=== PATIENT | female | born 1960 | race Caucasian/White ===

== ENCOUNTER → 2017-07-29 | Outpatient (CLI) | payer MEDICARE ==
[~2017-07-29] MED LIST: CARBOPLATIN IV NR; DEXAMETHASONE SOD PHOSPHATE 10 MG/ML 1 ML VIAL IV NR; ETOPOSIDE 180 MG in SODIUM CHLORIDE 0.9% 500 ML IV NR; FAMOTIDINE 20 MG/2 ML VIAL IV NR; ONDANSETRON 16 MG in SODIUM CHLORIDE 0.9% 50 ML IVPB NR; SODIUM CHLORIDE 0.9% 500 ML in EMPTY BAG 1 BAG IV PRN; SODIUM CHLORIDE 0.9% IV NR
--- NOTE | 2017-07-29 12:43 | CT ---
EXAMINATION TYPE: CT ChestAbdPelvis w con DATE OF EXAM: 07/29/2017 INDICATION: Rectal cancer COMPARISON: NONE CT DLP: 2199 mGycm CONTRAST: Performed with Oral Contrast and with IV Contrast, patient injected with 100 ml mL of Omnipaque 300. TECHNIQUE: Axial images at 5 mm thick sections. Reconstructed images in the coronal plane. Delayed images through the kidneys. FINDINGS: CT CHEST: Thyroid is heterogenous. The right lobe is enlarged and may contain some calcifications. Additional w orkup of the thyroid with ultrasound is recommended. There is a subtle 0.4 cm groundglass opacity in the anterior right middle lobe. Series 4 image 25. No enlarged mediastinal or hilar adenopathy is evident. The ascending aorta diameter at the level of the main pulmonary artery is 3.1 cm. The main pulmonary artery diameter at the bifurcation is 2.0 cm. Coronary artery calcification is present. CT ABDOMEN: There is beam hardening artifact from thoracic fixation pedicle screws and rods. This cau ses some limitation. Liver: Normal Spleen: Normal Pancreas: Normal Adrenal glands: The adrenal glands are normal. Gallbladder: Normal Kidneys: No masses are evident. No hydronephrosis is present. No cysts are present. Delayed images were obtained through the kidneys, which remain unremarkable. Aorta: Vascular calcification is within the aorta. Inferior vena cava: Normal. CT PELVIS: Loops of bowel within the abdomen and pelvis are normal. There are loops of bowel which are incom pletely distended or lack oral contrast limiting their evaluation. Fecal debris is within the colon. There is thickening of the perirectal space. No perirectal adenopathy is evident. Suspicious pelvic a denopathy is not evident. Appendix: Normal as visualized. Urinary bladder: Normal. Genitourinary structures: There is a 3.8 cm cyst on the right ovary. The uterus is in the left hemipe lvis. Left adnexal region is normal. Osseous structures: Fixation rods and screws are present within the spine. Calcified Granuloma is in the posterior subcutaneous tissues left gluteal region. Sacral screws are present. Scoliosis is noted . IMPRESSIONS: 1. Diffuse nonspecific thickening within the rectal region can be related to the patient's cancer. Co rrelate with the surgical history. 2. Abnormal heterogenous thyroid. Thyroid ultrasound with attention to the right lobe thyroid is rosalina mmended for additional workup. 3. 3.8 cm right ovarian cyst. Follow-up pelvic ultrasound is recommended.
== END | disposition home or self-care (01) ==
LOC: RADCTMAIN 07:32
PROVIDERS: ATTEND Internal Medicine Hematology & Oncology
DX: N83.201 Unspecified ovarian cyst, right side (principal); C20 Malignant neoplasm of rectum; Z88.5 Allergy status to narcotic agent; Z88.6 Allergy status to analgesic agent
CPT/HCPCS: 71260; 74177; Q9967

== ENCOUNTER → 2017-08-06 | Outpatient (CLI) | payer MEDICARE ==
--- NOTE | 2017-08-06 13:37 | CT ---
EXAMINATION TYPE: CT brain wo/w con DATE OF EXAM: 08/06/2017 COMPARISON: NONE HISTORY: Patient complains of dizziness and headache post fall. Patient has history of rectal CA. CT DLP: 2279 mGycm, Automated exposure control for dose reduction was used. CONTRAST: Patient injected with 100 mL of Omnipaque 300. CT of the brain is performed utilizing 3 mm thick sections through the posterior fossa and 3 mm thick sections through the remaining calvarium. Study is performed within 24 hours of arrival to the hospital. No abnormal hyperdensity is present to suggest an acute intracranial hemorrhage. No mass lesion is evident. No acute infarcts are evident. Ventricles and sulci are appropriate for the patient age. No abnormal enhancement is evident. Paranasal sinuses and mastoid air cells within the [id number] are clear. IMPRESSIONS: 1. Normal pre and postcontrast CT brain CT cervical spine. COMPARISON: None CT of the cervical spine is performed in the axial plane at 2 mm thick sections. Reconstructed image s in the coronal, and sagittal plane are reviewed on the computer. No acute fractures are evident. Vertebral body alignment is normal. Disc heights are preserved. Vertebral body heights are preserved. No spinal canal stenosis is evident. No neural foraminal stenosis is evident. IMPRESSIONS: 1. Normal CT cervical spine.
== END | disposition home or self-care (01) ==
LOC: RADCTMAIN 11:36
PROVIDERS: ATTEND Internal Medicine Hematology & Oncology
DX: C20 Malignant neoplasm of rectum (principal); R51 Headache
CPT/HCPCS: 70470; Q9967

== ENCOUNTER 2017-08-20 05:48 | Day surgery (SDC) | payer MEDICARE ==
[2017-08-19 15:30] VITALS: BMI 31.9
[~2017-08-20 05:48] MED LIST changes: -CARBOPLATIN IV NR; -DEXAMETHASONE SOD PHOSPHATE 10 MG/ML 1 ML VIAL IV NR; -ETOPOSIDE 180 MG in SODIUM CHLORIDE 0.9% 500 ML IV NR; -FAMOTIDINE 20 MG/2 ML VIAL IV NR; -ONDANSETRON 16 MG in SODIUM CHLORIDE 0.9% 50 ML IVPB NR; +Pre Op ABX Message 1 EACH MISC MISCELLANE ONE; -SODIUM CHLORIDE 0.9% 500 ML in EMPTY BAG 1 BAG IV PRN; -SODIUM CHLORIDE 0.9% IV NR
[2017-08-20] MEDS ORDERED: DEXAMETHASONE SOD PHOSPHATE 10 MG/ML 1 ML VIAL IV ONE (06:16)
[2017-08-20] MEDS ORDERED: HYDROmorphone 0.5 MG/0.5 ML SYRINGE IVP PRN (06:16)
[2017-08-20] MEDS ORDERED: ONDANSETRON 4 MG/2 ML VIAL IVP ONE (06:16)
[2017-08-20] MEDS ORDERED: LACTATED RINGERS 1,000 ML IV SCH (06:16)
[2017-08-20] MEDS ORDERED: LIDOCAINE 1% 20 ML VIAL (10MG/ML) FOR IV START INTRADERMA ONE (06:48)
[2017-08-20 07:02] LABS: Glucose,Whole Blood 105 mg/dL (75-99)
[2017-08-20] MEDS ORDERED: BUPIVACAINE (PF) 0.25% 30 ML VIAL SQ ONE ×2 (07:31)
[2017-08-20] MEDS: HEPARIN SODIUM,PORCINE 100 UNIT/ML 5 ML VIAL IV ONE ×2 (07:32→07:46)
[2017-08-20] MEDS ORDERED: HEPARIN SODIUM,PORCINE 5,000 UNIT/ML 1 ML VIAL SQ ONE (07:47)
--- NOTE | 2017-08-20 07:55 | P.GSHP ---
History of Present Illness H&P Date: 08/20/17 Chief Complaint: Rectal cancer Patient being treated for colorectal cancer with chemotherapy. Patient has had 1 cycle of chemotherapy. She has poor IV access. She is here today for Port-A- Cath placement for administration of chemotherapy. Past Medical History Past Medical History: Cancer, Chest Pain / Angina, CVA/TIA, Diabetes Mellitus, Hyperlipidemia, Hypertension, Osteoarthritis (OA) Additional Past Medical History / Comment(s): migraines, MRI showed CVA with 3 lesions on brain, irregular heart beat, hx rectal bleeding, hemorrhoids, scoliosis, deteriorating disks, cervical and colon(currently getting radiation) cancer, detached retina rt eye History of Any Multi-Drug Resistant Organisms: None Reported Past Surgical History: Back Surgery, Hysterectomy Additional Past Surgical History / Comment(s): cancer removed from cervix, laparoscopy for scar tissue, l Past Anesthesia/Blood Transfusion Reactions: No Reported Reaction Smoking Status: Current every day smoker - Past Family History Mother Family Medical History: Cancer Father Family Medical History: Deep Vein Thrombosis (DVT) Medications and Allergies Home Medications Medication Instructions Recorded Confirmed Type Atorvastatin Calcium [Lipitor] 20 mg PO DAILY 07/02/17 08/19/17 History Doxepin Liquid 0.6 ml PO HS 07/02/17 08/20/17 History Fluticasone Nasal [place] [Flonase 2 spr EA NOSTRIL DAILY 07/02/17 08/20/17 History Nasal [place]] Gabapentin [Neurontin] 300 mg PO TID 07/02/17 08/20/17 History HYDROcodone/APAP 10-325MG [[place] 1 tab PO Q3HR PRN 07/02/17 08/19/17 History 10-325] Ibuprofen [Motrin] 800 mg PO Q8HR 07/02/17 08/19/17 History Lisinopril [Zestril] 10 mg PO DAILY 07/02/17 08/20/17 History Loratadine [Claritin] 10 mg PO DAILY 07/02/17 08/20/17 History Ranitidine HCl [Zantac] 150 mg PO DAILY 07/02/17 08/19/17 History metFORMIN HCL [Glucophage] 500 mg PO DAILY 07/02/17 08/19/17 History Varenicline [Chantix] 1 mg PO BID 08/04/17 08/20/17 History Ondansetron HCl [Zofran] 4 mg PO Q4-6H PRN 08/19/17 08/20/17 History hydrOXYzine PAMOATE [Vistaril] 25 mg PO Q4HR PRN 08/19/17 08/20/17 History Allergies Allergy/AdvReac Type Severity Reaction Status Date / Time aspirin Allergy Abdominal Verified 08/19/17 15:21 Pain oxycodone [From OxyContin] Allergy Hallucinati Verified 08/19/17 15:21 ons Surgical - Exam Vital Signs Temp Pulse Resp BP Pulse Ox 98.0 F 84 18 135/86 96 08/20/17 06:19 08/20/17 06:19 08/20/17 06:19 08/20/17 06:19 08/20/17 06:19 Physical exam: General: Well-developed, well-nourished HEENT: Normocephalic, sclerae nonicteric Abdomen: Nontender, nondistended Extremities: No edema Neuro: Alert and oriented Results - Labs Abnormal Lab Results - Last 24 Hours (Table) 08/20/17 Range/Units 06:43 POC Glucose (mg/dL) 105 H (75-99) mg/dL Assessment and Plan (1) Rectal cancer Narrative/Plan: Will proceed with Port-A-Cath placement at this time. Risks of bleeding, infection, pneumothorax, DVT, catheter malfunction were discussed. She understands and wishes to proceed. Current Visit: Yes Status: Acute Code(s): C20 - MALIGNANT NEOPLASM OF RECTUM SNOMED Code(s): 349815638
[2017-08-20] MEDS ORDERED: MIDAZOLAM 2 MG/2 ML VIAL ONE (08:19)
[2017-08-20] MEDS ORDERED: SUCCINYLCHOLINE CHLORIDE 100 MG/5 ML SYR IV ONE (08:19)
[2017-08-20] MEDS ORDERED: PROPOFOL 10 MG/ML 20 ML VIAL IV ONE (08:19)
[2017-08-20] MEDS ORDERED: fentaNYL (PF) 50 MCG/ML 2 ML AMP ONE (08:19)
[2017-08-20] MEDS ORDERED: LIDOCAINE 1% INJ 10MG/ML (20 ML MDV) ONE (08:19)
[2017-08-20] MEDS ORDERED: ePHEDrine SULFATE/0.9% NACL/PF 50 MG/5 ML SYRINGE IV ONE (08:19)
[2017-08-20] MEDS ORDERED: SODIUM CHLORIDE 0.9% 50 ML with ceFAZolin 2,000 MG IV ONE ×2 (08:23)
[2017-08-20] MEDS ORDERED: LACTATED RINGERS 1,000 ML IV ONE (09:03)
[2017-08-20] MEDS ORDERED: HYDROcodone/APAP 5-325MG 1 EACH TAB PO PRN (09:21)
[2017-08-20] MEDS ORDERED: NALOXONE 0.4 MG/ML 1 ML VIAL IV PRN (09:21)
--- NOTE | 2017-08-20 09:23 | P.OP ---
Date of Procedure: 08/20/17 Procedure(s) Performed: PREOPERATIVE DIAGNOSIS: Rectal cancer POSTOPERATIVE DIAGNOSIS: Same PROCEDURE: Port-A-Cath placement SURGEON: Rachid EBL: Minimal ANESTHESIA: Sedation COMPLICATIONS: None OPERATIVE PROCEDURE: Patient was brought and placed on the operative table in the supine position. The patient was sedated per anesthesia that time. The chest and neck were prepped and draped in usual sterile fashion. The ultrasound probe was used to identify the location of the right internal jugular vein. The skin was localized with lidocaine. The Seldinger needle was advanced into the IJ under ultrasound guidance. The wire was advanced through the needle under fluoroscopic guidance into the superior vena cava. A port pocket was created in the right infraclavicular location. The catheter was tunneled from the wire entrance site to the port pocket. The port was then connected to the catheter. The dilator introducer was threaded over the guidewire. The guidewire and dilator were then removed. The catheter was advanced through the introducer and introducer was then removed. The tip was seen to be in the right atrial junction. Port was flushed with both saline and a Hep-Lock solution. There was good flow both in and out of the port. The port was sutured in underlying tissues using 3-0 silk sutures. The subcutaneous tissues were reapproximated using 3-0 Vicryl sutures and the skin at both locations using 4-0 Monocryl sutures. Steri-Strips and sterile dressings then applied. DISPOSITION: Stable to recovery room
[2017-08-20 09:25] VITALS: TEMP 97.6
[2017-08-20 09:28] LABS: Glucose,Whole Blood 151 mg/dL (75-99)
--- NOTE | 2017-08-20 09:32 | XR ---
EXAMINATION TYPE: XR chest 1V confirm line [facility] DATE OF EXAM: 08/20/2017 COMPARISON: CT chest abdomen and pelvis July 29, 2017 HISTORY: Port-A-Cath insertion TECHNIQUE: Single AP portable frontal upright view of the chest is obtained. FINDINGS: There is new right internal jugular Mediport catheter with tip in SVC. There is no focal ai r space opacity, pleural effusion, or pneumothorax seen. Tracheal deviation to the left from heteroge neous right thyroid nodule or goiter is redemonstrated. The cardiac silhouette size is within normal limits. The osseous structures are demineralized. There is degenerative change bilateral glenohume ral joints. There is long segment surgery in the thoracic spine and partial visualization of long seg ment surgery in the lumbar spine. IMPRESSION: New right internal jugular Mediport catheter with tip in SVC. No sizable pneumothorax af ter catheter placement.
[2017-08-20 09:47] VITALS: RESP 18
--- NOTE | 2017-08-20 10:05 | FL ---
EXAMINATION TYPE: FL guided central line placement DATE OF EXAM: 08/20/2017 CLINICAL HISTORY: Port-A-Cath insertion. Newly diagnosed rectal cancer TECHNIQUE: Fluoroscopy. COMPARISON: None. FINDINGS: Fluoroscopic guidance was provided during Port-A-Cath insertion procedure performed by Dr. Rashid. A total of 39 seconds of fluoroscopic time was utilized during the procedure and one spot in traoperative image is acquired. Single image acquired shows catheter tip near cavoatrial junction wit h adjacent extensive surgical change to the visualized thoracic spine. IMPRESSION: As Above.
[2017-08-20 10:09] VITALS: BP 121/72; PULSE 88
== END 2017-08-20 10:55 | disposition home or self-care (01) ==
LOC: OR 05:48
PROVIDERS: ATTEND Surgery
DX: C19 Malignant neoplasm of rectosigmoid junction (principal); Z45.2 Encounter for adjustment and management of vascular access device; E11.9 Type 2 diabetes mellitus without complications; I10 Essential (primary) hypertension; F17.200 Nicotine dependence, unspecified, uncomplicated; K21.9 Gastro-esophageal reflux disease without esophagitis; M41.9 Scoliosis, unspecified; E78.5 Hyperlipidemia, unspecified; M19.90 Unspecified osteoarthritis, unspecified site; Z86.73 Personal history of transient ischemic attack (TIA), and cerebral infarction without residual deficits; Z79.84 Long term (current) use of oral hypoglycemic drugs; Z79.1 Long term (current) use of non-steroidal anti-inflammatories (NSAID); Z79.899 Other long term (current) drug therapy; Z92.3 Personal history of irradiation; Z85.41 Personal history of malignant neoplasm of cervix uteri; Z90.710 Acquired absence of both cervix and uterus; Z79.51 Long term (current) use of inhaled steroids; Z88.6 Allergy status to analgesic agent; Z88.5 Allergy status to narcotic agent
CPT/HCPCS: 77001; 36561; C1788; J2250; J1644; J1642; J1100; J2405; J2001; J3010; J0690; J0330; J2704

== ENCOUNTER → 2017-10-02 | Outpatient (CLI) | payer MEDICARE ==
[2017-10-02 13:54] LABS: Blood Urea Nitrogen 13 mg/dL (7-17)
--- NOTE | 2017-10-02 23:02 | CT ---
EXAMINATION TYPE: CT abdomen pelvis w con DATE OF EXAM: 10/02/2017 COMPARISON: 07/29/2017 HISTORY: 57-year-old female Rectal CA, observation for mets. TECHNIQUE: Contiguous axial scanning of the abdomen and pelvis following administration of 100 ml Omn ipaque 300 IV contrast. Delayed images through the kidneys and coronal/sagittal reconstructions perf ormed. CT DLP: 1659 mGycm Automated exposure control for dose reduction was used. FINDINGS: Heart is normal size without pericardial effusion. Lung bases clear without pleural effusion. There is a new 1.1 cm hypodense lesion posterior right liver lobe which is suspicious. Subtle 5 mm hy podense lesion peripheral right liver lobe axial image 29 that clearly seen previously. A 7 mm hypode nse lesion along the right side of the gallbladder fossa was present previously. Portal venous system is patent. Stable mild prominence to the bile duct with normal distal tapering. Gallbladder, adrenal glands, right kidney, spleen, pancreas show no gross abnormality. 6 mm nonobstructive calculus lower pole left kidney. A gastric fundal diverticulum is again visualized.. Moderate atherosclerotic calcifications infrarenal abdominal aorta and iliac arteries. No dilated small bowel, free fluid, or free air. No mesenteric or retroperitoneal lymphadenopathy remi ntified. Normal appendix. Oral contrast progressed to the transverse colon. Mild diverticulosis of the junction of the descendi ng and sigmoid colon. Bladder is urine distended. Redemonstrated some wall thickening of the distal rectum though not as pr onounced as compared to prior exam. Just adjacent, there are small foci of air in the vaginal canal a nd more air collecting within the fornices of the vagina. Uterus and ovaries are visualized. A 3.8 cm cystic lesion of the right ovary can be further evaluated with pelvic ultrasound. No abnormal fluid collection in the pelvis or pelvic lymphadenopathy seen. Bones: Extensive thoracolumbosacral and pelvic fusion hardware is present along with underlying levoc onvex scoliosis of the lumbar spine. No new osseous destructive process seen. IMPRESSION: 1. CONTINUED DISTORTED APPEARANCE TO THE DISTAL RECTUM THOUGH WITH THE OVERALL SOFT TISSUE THICKENING NOT PRONOUNCED 07/29/2017. FINDINGS MAY REFLECT SOME TREATMENT RESPONSE. 2. POSSIBLE RECTOVAGINAL FISTULA THERE ARE TINY FOCI OF AIR IN THE VAGINAL CANAL AND A GREATER ANDRE UNT OF AIR COLLECTING IN THE FORNICES. 3. TWO NEW HYPODENSE LESIONS IN THE RIGHT LIVER LOBE MEASURING 1.1 CM AND 0.5 CM. FOLLOW-UP RECOMMEND ED NEW HEPATIC METASTASES ARE NOT EXCLUDED. 4. OTHERWISE, NO OTHER EVIDENCE FOR METASTATIC DISEASE. 5. STABLE 3.8 CM CYSTIC LESION OF THE RIGHT OVARY. THIS IS ABNORMAL IN A POSTMENOPAUSAL FEMALE AND CA N BE FURTHER EVALUATED WITH PELVIC ULTRASOUND TO ASSESS FOR ANY INTERNAL COMPLEXITY. SUBSEQUENT RECOM MENDATIONS CAN BE MADE AT THAT TIME. 6. NONOBSTRUCTIVE 6 MM LEFT RENAL CALCULUS.
== END | disposition home or self-care (01) ==
LOC: RADPROMAIN 13:02
PROVIDERS: ATTEND Internal Medicine Hematology & Oncology
DX: C20 Malignant neoplasm of rectum (principal); N20.0 Calculus of kidney; K76.9 Liver disease, unspecified; N83.201 Unspecified ovarian cyst, right side
CPT/HCPCS: 82565; 84520; 74177; 36415; Q9967; J1642

== ENCOUNTER 2018-01-12 07:43 | Day surgery (SDC) | payer MEDICARE, OTHER ==
[2018-01-06 12:02] VITALS: BMI 28.8
[~2018-01-12 07:43] MED LIST changes: +LACTATED RINGERS 1,000 ML IV SCH; +LIDOCAINE 1% 20 ML VIAL (10MG/ML) FOR IV START INTRADERMA PRN; -Pre Op ABX Message 1 EACH MISC MISCELLANE ONE
[2018-01-12 07:58] VITALS: TEMP 97.5
[2018-01-12 08:36] LABS: Glucose,Whole Blood 95 mg/dL (75-99)
[2018-01-12] MEDS ORDERED: PROPOFOL 10 MG/ML 20 ML VIAL IV ONE (09:08)
[2018-01-12] MEDS ORDERED: MIDAZOLAM 2 MG/2 ML VIAL ONE (09:08)
[2018-01-12 09:35] VITALS: RESP 18
[2018-01-12] MEDS ORDERED: HYDROcodone/APAP 10-325MG 1 EACH TAB PO ONE (09:48)
[2018-01-12 10:14] VITALS: BP 111/73; PULSE 79
--- NOTE | 2018-01-12 12:44 | P.PCN ---
Date of Procedure: 01/12/18 Procedure(s) Performed: Procedure: Flexible sigmoidoscopy and biopsy. Preoperative diagnosis: History of rectal cancer. Postoperative diagnosis: 1. Diminutive polyp in the rectum unlikely to be related to her anorectal cancer biopsied. 2. No residual tumor noted at the anorectal junction where it was previously noted in June 2017. 3. Sigmoid diverticulosis with no evidence of acute diverticulitis or strictures. Preparation: HalfLytely prep. Sedation: Was provided by anesthesia. Brief clinical history: The patient is a 57-year-old female who was diagnosed in June 2017 with poorly differentiated carcinoma of the rectum. At that time she presented with rectal bleeding and was found to have ulcerated anorectal mass around 5 cm in size. The patient received adjuvant chemo and radiation therapy and is referred at this time for assessment of her response. CT of the abdomen and pelvis showed improvement and there was question of a possible rectovaginal fistula. Procedure: With the patient on her left lateral decubitus position and after informed consent and adequate sedation, the perianal area was inspected and it did not show any fissures or fistulas. There were no masses felt on digital rectal examination. The Olympus CFQ 160L video colonoscope was then inserted in the rectum and advanced in the sigmoid. Particular attention was made to the area of the anorectal junction anteriorly the mass was noted previously. There was no evidence of residual tumor in that area. There was a diminutive polyp within a centimeter or 2 from the anorectal junction which I biopsied. Otherwise, the rectum appeared normal in both the forward and in the retroflex view. No fistulas were appreciated either. In the sigmoid there were a few diverticular orifices as previously described without evidence of acute diverticulitis or strictures. The patient tolerated the procedure well. Plan: The patient was reassured. She will follow-up with you as planned and further plans will be made based on her course.
== END 2018-01-12 10:32 | disposition home or self-care (01) ==
LOC: ORWHC2ENDO 07:43
DX: K62.1 Rectal polyp (principal); K57.30 Diverticulosis of large intestine without perforation or abscess without bleeding; Z85.048 Personal history of other malignant neoplasm of rectum, rectosigmoid junction, and anus; Z92.21 Personal history of antineoplastic chemotherapy; Z92.3 Personal history of irradiation; E11.9 Type 2 diabetes mellitus without complications; I10 Essential (primary) hypertension; E78.5 Hyperlipidemia, unspecified; G43.909 Migraine, unspecified, not intractable, without status migrainosus; M41.9 Scoliosis, unspecified; Z72.0 Tobacco use; Z92.84 Personal history of unintended awareness under general anesthesia; Z86.73 Personal history of transient ischemic attack (TIA), and cerebral infarction without residual deficits; Z79.84 Long term (current) use of oral hypoglycemic drugs; Z79.1 Long term (current) use of non-steroidal anti-inflammatories (NSAID); Z79.891 Long term (current) use of opiate analgesic; Z79.51 Long term (current) use of inhaled steroids; Z79.899 Other long term (current) drug therapy; Z88.6 Allergy status to analgesic agent; Z88.5 Allergy status to narcotic agent
CPT/HCPCS: 88305; 45331; J2250; J2704

== ENCOUNTER 2018-01-14 14:20 | Emergency (ER) | payer MEDICARE, OTHER ==
[2018-01-14 14:47] VITALS: RESP 18
[2018-01-14] MEDS ORDERED: SODIUM CHLORIDE 0.9% 1,000 ML IV STA (15:21)
[2018-01-14] MEDS ORDERED: ACETAMINOPHEN IV (For NPO) 1,000 MG in SALINE 1 100ML.BAG IVPB STA (15:26)
--- NOTE | 2018-01-14 15:28 | ED ---
Abdominal Pain HPI - General Chief Complaint: Abdominal Pain Stated Complaint: POSS RUPTURED APPENDIX Time Seen by Provider: 01/14/18 14:50 Source: patient, RN notes reviewed Mode of arrival: wheelchair Limitations: no limitations - History of Present Illness Initial Comments: This is a 57-year-old female with history of she believes ovarian cancer many years ago status post surgery and also is had colon cancer status post chemo and radiation therapy no surgery her last chemo and radiation were in October he believes who presents with complaints of right lower quadrant pain is been going on for several days. She denies any fevers chills or sweats she states the pain is sharp 10/10 severity increases slightly with upright position movement no increase with deep breathing. She denies any difficulty with urination a difficulty with bowel movements at this time. No cough phlegm production no other modifying factors. MD Complaint: abdominal pain - Related Data Home Medications Medication Instructions Recorded Confirmed Atorvastatin Calcium [Lipitor] 20 mg PO HS 07/02/17 01/14/18 Fluticasone Nasal Venus [Flonase 2 spr EA NOSTRIL DAILY PRN 07/02/17 01/14/18 Nasal Venus] Gabapentin [Neurontin] 300 mg PO TID 07/02/17 01/14/18 HYDROcodone/APAP 10-325MG [Jerome 1 tab PO Q3HR PRN 07/02/17 01/14/18 10-325] Lisinopril [Zestril] 10 mg PO QAM 07/02/17 01/14/18 metFORMIN HCL [Glucophage] 500 mg PO DAILY 07/02/17 01/14/18 hydrOXYzine PAMOATE [Vistaril] 25 mg PO Q4HR PRN 08/19/17 01/14/18 Doxepin 0.6 Ml 0.6 ml PO HS PRN 01/06/18 01/14/18 Loratadine [Claritin] 10 mg PO DAILY 01/06/18 01/14/18 Omeprazole [PriLOSEC] 40 mg PO DAILY 01/06/18 01/14/18 QUEtiapine [SEROquel] 100 mg PO HS 01/06/18 01/14/18 Ciprofloxacin HCl [Cipro] 500 mg PO BID 01/14/18 01/14/18 Ondansetron [Zofran] 4 mg PO Q6H PRN 01/14/18 01/14/18 Orphenadrine [Norflex] 100 mg PO BID 01/14/18 01/14/18 Allergies Allergy/AdvReac Type Severity Reaction Status Date / Time aspirin Allergy Abdominal Verified 01/14/18 15:54 Pain oxycodone [From OxyContin] Allergy Hallucinati Verified 01/14/18 15:54 ons Review of Systems ROS Statement: Those systems with pertinent positive or pertinent negative responses have been documented in the HPI. ROS Other: All systems not noted in ROS Statement are negative. Past Medical History Past Medical History: Cancer, Chest Pain / Angina, CVA/TIA, Diabetes Mellitus, Hyperlipidemia, Hypertension, Musculoskeletal Disorder, Osteoarthritis (OA) Additional Past Medical History / Comment(s): Migraines. MRI showed CVA w/ 3 lesions on brain. José leg weakness, irregular heart beat. Scoliosis, deteriorating disks. OLD HX Cervical CA; Colon CA 05/2017, last radiation tx Friday09-23-17, last chemo 09-17-17. Detached retina rt eye, [place] RT E[place]. History of Any Multi-Drug Resistant Organisms: C-DIFF Date of last positivie culture/infection: 2014 MDRO Source:: stool Past Surgical History: Back Surgery, Hysterectomy Additional Past Surgical History / Comment(s): Cancer removed from cervix, laparoscopy for scar tissue. COLONOSCOPY. PORT-A-CATH 08/20/17. Past Anesthesia/Blood Transfusion Reactions: Previous Problems w/ Anesthesia Additional Past Anesthesia/Blood Transfusion Reaction / Comment(s): woke up during back surgery, NEAR END. Past Psychological History: Anxiety, Depression Smoking Status: Current every day smoker Past Alcohol Use History: None Reported Past Drug Use History: None Reported - Past Family History Mother Family Medical History: Cancer Father Family Medical History: Deep Vein Thrombosis (DVT) General Exam - General Exam Comments Initial Comments: This is a well-developed well-nourished awake alert oriented 3 female Limitations: no limitations General appearance: alert, in no apparent distress Head exam: Present: atraumatic, normocephalic, normal inspection Eye exam: Present: normal appearance, PERRL, EOMI. Absent: scleral icterus, conjunctival injection, periorbital swelling ENT exam: Present: mucous membranes dry Neck exam: Present: normal inspection. Absent: tenderness, meningismus, lymphadenopathy Respiratory exam: Present: normal lung sounds bilaterally, other (There is a port in place in the right anterior chest wall). Absent: respiratory distress, wheezes, rales, rhonchi, stridor Cardiovascular Exam: Present: regular rate, normal rhythm, normal heart sounds. Absent: systolic murmur, diastolic murmur, rubs, gallop, clicks GI/Abdominal exam: Present: soft, tenderness, normal bowel sounds. Absent: distended, guarding, rebound, rigid Rectal exam: Present: deferred Extremities exam: Present: normal inspection, full ROM, normal capillary refill. Absent: tenderness, pedal edema, joint swelling, calf tenderness Back exam: Present: normal inspection Neurological exam: Present: alert, oriented X3, CN II-XII intact Psychiatric exam: Present: normal affect, normal mood Skin exam: Present: warm, dry, intact, normal color. Absent: rash Course Vital Signs 01/14/18 01/14/18 14:43 17:37 Temperature 98.0 F Pulse Rate 96 69 Respiratory 18 18 Rate Blood Pressure 121/73 104/62 O2 Sat by Pulse 99 97 Oximetry Medical Decision Making - Medical Decision Making I did discuss the findings with the patient and her . I did offer admission to the patient for evaluation and inpatient the above findings of the CAT scan. Patient does not want to be admitted and would prefer to do this outpatient. She states she does feel improved when she first arrived. Patient will be discharged I did encourage her to call Dr. Tyson tomorrow to let his office know that she was here for further evaluation she will get a prescription for an outpatient ultrasound the gallbladder. She does not want stay longer wishes to go home. He was invited back at any time. The CAT scan reveals a normal-appearing appendix. - Lab Data Result diagrams: 01/14/18 15:25 01/14/18 15:25 Lab Results 01/14/18 01/14/18 01/14/18 Range/Units 15:25 15:25 15:25 WBC 3.5 L (3.8-10.6) k/uL RBC 3.67 L (3.80-5.40) m/uL Hgb 12.1 (11.4-16.0) gm/dL Hct 35.8 (34.0-46.0) % MCV 97.5 (80.0-100.0) fL MCH 32.9 (25.0-35.0) pg MCHC 33.7 (31.0-37.0) g/dL RDW 14.2 (11.5-15.5) % Plt Count 189 (150-450) k/uL Neutrophils % 63 % Lymphocytes % 19 % Monocytes % 13 % Eosinophils % 2 % Basophils % 1 % Neutrophils # 2.2 (1.3-7.7) k/uL Lymphocytes # 0.7 L (1.0-4.8) k/uL Monocytes # 0.4 (0-1.0) k/uL Eosinophils # 0.1 (0-0.7) k/uL Basophils # 0.0 (0-0.2) k/uL PT (9.0-12.0) sec INR (<1.2) APTT (22.0-30.0) sec Sodium 137 (137-145) mmol/L Potassium 4.7 (3.5-5.1) mmol/L Chloride 103 (98-107) mmol/L Carbon Dioxide 26 (22-30) mmol/L Anion Gap 8 mmol/L BUN 14 (7-17) mg/dL Creatinine 0.70 (0.52-1.04) mg/dL Est GFR (CKD-EPI)AfAm >90 (>60 ml/min/1.73 sqM) Est GFR (CKD-EPI)NonAf >90 (>60 ml/min/1.73 sqM) Glucose 93 (74-99) mg/dL Plasma Lactic Acid Farhan 0.8 (0.7-2.0) mmol/L Calcium 9.5 (8.4-10.2) mg/dL Total Bilirubin 0.4 (0.2-1.3) mg/dL AST 51 H (14-36) U/L ALT 34 (9-52) U/L Alkaline Phosphatase 103 (38-126) U/L Total Protein 7.3 (6.3-8.2) g/dL Albumin 4.4 (3.5-5.0) g/dL Amylase 76 (30-110) U/L Lipase 120 (23-300) U/L 01/14/ Range/Units 15:25 WBC (3.8-10.6) k/uL RBC (3.80-5.40) m/uL Hgb (11.4-16.0) gm/dL Hct (34.0-46.0) % MCV (80.0-100.0) fL MCH (25.0-35.0) pg MCHC (31.0-37.0) g/dL RDW (11.5-15.5) % Plt Count (150-450) k/uL Neutrophils % % Lymphocytes % % Monocytes % % Eosinophils % % Basophils % % Neutrophils # (1.3-7.7) k/uL Lymphocytes # (1.0-4.8) k/uL Monocytes # (0-1.0) k/uL Eosinophils # (0-0.7) k/uL Basophils # (0-0.2) k/uL PT 9.8 (9.0-12.0) sec INR 1.0 (<1.2) APTT 22.1 (22.0-30.0) sec Sodium (137-145) mmol/L Potassium (3.5-5.1) mmol/L Chloride (98-107) mmol/L Carbon Dioxide (22-30) mmol/L Anion Gap mmol/L BUN (7-17) mg/dL Creatinine (0.52-1.04) mg/dL Est GFR (CKD-EPI)AfAm (>60 ml/min/1.73 sqM) Est GFR (CKD-EPI)NonAf (>60 ml/min/1.73 sqM) Glucose (74-99) mg/dL Plasma Lactic Acid Farhan (0.7-2.0) mmol/L Calcium (8.4-10.2) mg/dL Total Bilirubin (0.2-1.3) mg/dL AST (14-36) U/L ALT (9-52) U/L Alkaline Phosphatase (38-126) U/L Total Protein (6.3-8.2) g/dL Albumin (3.5-5.0) g/dL Amylase (30-110) U/L Lipase (23-300) U/L - Radiology Data Radiology results: report reviewed (I did review the imaging and report evidence of innumerable hepatic masses measuring of 3.1 cm compatible with metastatic disease several tiny nonspecific hepatic lesions previously seen mild hepatomegaly gallbladder is distended, bile ducts 1.2 cm. There appears be some soft tissue irregularity at the sphincter of bony. Also new L1 lesion and advise a fracture of rib #11.), image reviewed Disposition Clinical Impression: Abdominal pain, Metastatic colon cancer in female, Common bile duct dilatation Disposition: HOME SELF-CARE Condition: Stable Instructions: Abdominal Pain (ED) Additional Instructions: Follow-up with Dr. Tyson as early as tomorrow morning. You are welcome to return at any time. Is patient prescribed a controlled substance at d/c from ED?: No Referrals: Masha Parikh MD [Primary Care Provider] - 1-2 days
[2018-01-14] MEDS ORDERED: ACETAMINOPHEN IV (For NPO) 1,000 MG in EMPTY BAG 1 BAG IVPB STA (15:31)
[2018-01-14 15:36] LABS: Basophils % (A) 1 %; Eosinophils # (A) 0.1 k/uL (0-0.7); Eosinophils % (A) 2 %; HCT 35.8 % (34.0-46.0); HGB 12.1 gm/dL (11.4-16.0); Lymphocytes # (A) 0.7 k/uL (1.0-4.8); Lymphocytes % (A) 19 %; MCH 32.9 pg (25.0-35.0); MCHC 33.7 g/dL (31.0-37.0); MCV 97.5 fL (80.0-100.0); Mean Platelet Volume 7.2; Monocytes # (A) 0.4 k/uL (0-1.0); Monocytes % (A) 13 %; Neutrophils # (A) 2.2 k/uL (1.3-7.7); Neutrophils % (A) 63 %; Platelet Count 189 k/uL (150-450); RBC 3.67 m/uL (3.80-5.40); RDW 14.2 % (11.5-15.5); WBC 3.5 k/uL (3.8-10.6)
[2018-01-14 15:44] LABS: Partial Thromboplastin Time 22.1 sec (22.0-30.0); Prothrombin Time 9.8 sec (9.0-12.0)
[2018-01-14 15:46] LABS: ALT 34 U/L (9-52); AST 51 U/L (14-36); Albumin 4.4 g/dL (3.5-5.0); Alkaline Phosphatase 103 U/L (38-126); Amylase 76 U/L (30-110); Anion Gap 8 mmol/L; Blood Urea Nitrogen 14 mg/dL (7-17); Calcium 9.5 mg/dL (8.4-10.2); Carbon Dioxide 26 mmol/L (22-30); Chloride 103 mmol/L (98-107); Glucose 93 mg/dL (74-99); Lipase 120 U/L (23-300); Potassium 4.7 mmol/L (3.5-5.1); Sodium 137 mmol/L (137-145); Total Bilirubin 0.4 mg/dL (0.2-1.3); Total Protein 7.3 g/dL (6.3-8.2)
--- NOTE | 2018-01-14 16:35 | CT ---
EXAMINATION TYPE: CT abdomen pelvis w con DATE OF EXAM: 01/14/2018 COMPARISON: 10/02/2017 HISTORY: Right lower quadrant pain. CT DLP: 1640 mGycm CONTRAST: CT scan of the abdomen and pelvis is performed without Oral Contrast and with IV Contrast, patient in jected with 100 mL of Isovue M300. FINDINGS: LUNG BASES-: No visible nodule. No infiltrate. LIVER/GB: Innumerable hepatic masses measuring up to 3.1 cm compatible with metastatic disease. Sever al tiny nonspecific hepatic lesions were seen previously. There is mild hepatomegaly. Gallbladder is distended. There is common bile duct dilatation measuring 1.2 cm. Soft tissue in the region of the sp hincter of Oddi. Underlying neoplasm not excluded. PANCREAS: No inflammation. Soft tissue in the region of the sphincter of Oddi. Underlying neoplasm not excluded. SPLEEN: No splenic enlargement. No lesion seen. ADRENALS: No nodule. No thickening. KIDNEYS/BLADDER: No hydronephrosis. No nephrolithiasis. No distinct renal mass. Urinary bladder g rossly unremarkable. BOWEL: Normal appendix. Normal bowel caliber. No inflammation. GENITAL ORGANS: No gross abnormality. LYMPH NODES: No greater than 1cm abdominal or pelvic lymph nodes are appreciated. AORTA: No significant abnormality. OSSEOUS STRUCTURES: New left L1 lesion. Pathologic fracture left rib #11. OTHER: No significant additional abnormality is seen. IMPRESSION: 1. Innumerable hepatic masses measuring up to 3.1 cm compatible with metastatic disease. Several tiny nonspecific hepatic lesions were seen previously. There is mild hepatomegaly. Gallbladder is distend ed. There is common bile duct dilatation measuring 1.2 cm. Soft tissue in the region of the sphincter of Oddi. Underlying neoplasm not excluded. 2. New left L1 lesion. Pathologic fracture left rib 11.
[2018-01-14 18:26] VITALS: BP 122/56; PULSE 68; TEMP 97.2
== END 2018-01-14 18:25 | disposition home or self-care (01) ==
LOC: EC 14:20
DX: C18.9 Malignant neoplasm of colon, unspecified (principal); K83.8 Other specified diseases of biliary tract; E11.9 Type 2 diabetes mellitus without complications; E78.5 Hyperlipidemia, unspecified; I10 Essential (primary) hypertension; F32.9 Major depressive disorder, single episode, unspecified; F17.200 Nicotine dependence, unspecified, uncomplicated; Z86.73 Personal history of transient ischemic attack (TIA), and cerebral infarction without residual deficits; Z85.41 Personal history of malignant neoplasm of cervix uteri; Z92.21 Personal history of antineoplastic chemotherapy; Z79.84 Long term (current) use of oral hypoglycemic drugs; Z79.899 Other long term (current) drug therapy; Z88.6 Allergy status to analgesic agent; Z88.5 Allergy status to narcotic agent; Z90.710 Acquired absence of both cervix and uterus
CPT/HCPCS: 36415; 80053; 82150; 83605; 83690; 85025; 85610; 85730; 74177; 99284; 96374; J0131; Q9967